=== PATIENT | male | born 1995 | race Caucasian/White ===

== ENCOUNTER 2017-08-31 15:03 | Inpatient (IN) | payer SELFPAY ==
[~2017-08-31 15:03] MED LIST: GLYCOPYRROLATE 1 MG/5 ML SYRINGE IV PUSH ONE; LIDOCAINE HCL 1% PF 5 ML SYRINGE OTHER ONE; NEOSTIGMINE 5 MG/5 ML SYRINGE IV PUSH ONE; PHENYLEPH/NS 1000 MCG/10 ML SYR IV ONE; PROPOFOL 200 MG/20 ML AMP IV ONE; ROCURONIUM INJ 50 MG/5 ML SYRINGE IV PUSH ONE; ePHEDrine/NS 25 MG/5 ML SYRINGE IV ONE
[2017-08-31 15:15] VITALS: BP 144/76; PULSE 88; RESP 18; TEMP 97.9; O2SAT 99
[2017-08-31] MEDS ORDERED: ceFAZolin 2 GM PREMIX 50 ML IV ONE (17:30)
--- NOTE | 2017-08-31 17:31 | PD ---
HPI Chief Complaint: Eye Problems/Injury Time Seen by Provider: 16:32 Travel History International Travel<30 days: No Contact w/Intl Traveler<30days: No Traveled to known affect area: No History of Present Illness HPI This is a 22-year-old male with no significant past medical history, sent here from [place] on a freestanding ER for evaluation by ophthalmology. The patient was working with a nail gun and reports that a nail ricocheted off the plywood into his right eye. CT scan was performed at [place] on the ED which showed a right open globe. The patient was given tetanus immunization. He was also given pain medication and transferred here. There are no other reported injuries. [facility] Past Medical History Medical History: Denies Significant Hx ?: Not Past Surgical History Surgical History: No Previous Surgery Social History Alcohol Use: No Tobacco Use: Yes Substance Use: No Allergies-Medications (Allergen,Severity, Reaction): Coded Allergies: No Known Allergies (Unverified , 08/31/17) Reported Meds & Prescriptions Reported Meds & Active Scripts Active No Active Prescriptions or Reported Medications Review of Systems Except as stated in HPI: all other systems reviewed are Neg General / Constitutional: No: Fever, Chills Eyes: Positive: Foreign Body Sensation (Right eye), Pain, Visual changes ( right eye) HENT: Positive: Headaches ( right eye), No: Neck Pain Cardiovascular: No: Chest Pain or Discomfort, Irregular Rhythm Respiratory: No: Cough, Shortness of Breath Gastrointestinal: No: Nausea, Vomiting, Abdominal Pain Musculoskeletal: No: Weakness, Pain Neurologic: Positive: Headache (Right forehead), No: Weakness, Dizziness Physical Exam Narrative GENERAL: Well-developed well-nourished male in no obvious respiratory distress. SKIN: Focused skin assessment warm/dry. HEAD: Atraumatic. Normocephalic. EYES: Right pupil was irregular. There appear to be streaming of vitreous fluid. There was opacification on light reflex. Left eye is reactive. No scleral icterus. No injection or drainage. ENT: No nasal bleeding or discharge. Mucous membranes pink and moist. NECK: Trachea midline. Supple. CARDIOVASCULAR: Regular rate and rhythm. No murmur appreciated. RESPIRATORY: No accessory muscle use. Clear to auscultation. Breath sounds equal bilaterally. GASTROINTESTINAL: Abdomen soft, non-tender, nondistended. Hepatic and splenic margins not palpable. MUSCULOSKELETAL: No obvious deformities. No clubbing. No cyanosis. No edema. NEUROLOGICAL: Awake and alert. No obvious cranial nerve deficits. Motor grossly within normal limits. Normal speech. Data Data Last Documented VS Vital Signs Date Time Temp Pulse Resp B/P (MAP) Pulse Ox O2 Delivery O2 Flow Rate FiO2 08/31/17 15:15 97.9 88 18 144/76 (98) 99 Orders Orders Cefazolin 2 Gm Premix (Ancef 2 Gm Premix (08/31/17 17:30) Admit Order (Ed Use Only) (08/31/17 18:03) Consult Ophthalmology (08/31/17 ) [facility] Medical Decision Making Medical Screen Exam Complete: Yes Emergency Medical Condition: Yes Differential Diagnosis Ruptured globe Narrative Course 22-year-old male presents from [facility] the ED as an ER to ER transfer. The patient was evaluated by Dr. Milligan, on-call podiatry professor, patient has confirmed ruptured globe from CT scan. Dr. Milligan will take the patient to the operating room for repair. He has been given Ancef, 2 g IV 1 dose. Diagnosis Primary Impression: Ruptured globe, right eye Admitting Information Admitting Physician Requests: Admit Scripts No Active Prescriptions or Reported Meds Azael Enriquez MD Aug 31, 2017 17:31
--- NOTE | 2017-08-31 17:45 | PD.CONS ---
History of Present Illness Service Ophthalmology Consult Requested By Reason for Consult ruptured globe right eye Primary Care Physician No Primary Care Physician Diagnoses: History of Present Illness 22 yo M who presented to [place] ED after a nail gun injury to his right eye. Had immediate pain and decreased vision. No significant ocular history. CT showed obvious ruptured globe so he was transferred to [place] for further care. Past Family Social History Allergies: Coded Allergies: No Known Allergies (Unverified , 08/31/17) Physical Exam Vital Signs Vital Signs Date Time Temp Pulse Resp B/P (MAP) Pulse Ox O2 Delivery O2 Flow Rate FiO2 08/31/17 15:15 97.9 88 18 144/76 (98) 99 Physical Exam Va sc at near OD HM, OS 20/20 EOM full OU, no diplopia CVF full OS, unable OD Pupils 2-1 OS, no view OD IOP deferred Anterior exam OD - normal eyelid, sclerocorneal laceration with uveal prolapse, traumatic cataract with shallow AC OS - normal eyelid, C/S W&Q, K clear, AC deep, pupil round, lens clear Assessment and Plan Problem List: (1) 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 NPO since yesterday. Eye shield. Tetanus. IV Ancef. Admit to medicine for 23 hour Obs. Teressa Milligan MD Aug 31, 2017 17:45
[2017-08-31] MEDS ORDERED: SENNOSIDES 8.6 MG TAB PO PRN (18:30)
[2017-08-31] MEDS ORDERED: ONDANSETRON HCL 4 MG/2 ML VIAL IVP PRN (18:30)
[2017-08-31] MEDS ORDERED: NALOXONE HCL 0.4 MG/ML AMP IV PUSH PRN (18:30)
[2017-08-31] MEDS ORDERED: MAGNESIUM HYDROXIDE SUSP 30 ML CUP PO PRN (18:30)
[2017-08-31] MEDS ORDERED: ACETAMINOPHEN 325 MG TAB PO PRN (18:30)
[2017-08-31] MEDS ORDERED: LACTULOSE SYRUP 20 GM/30 ML CUP PO PRN (18:30)
[2017-08-31] MEDS ORDERED: SODIUM CHLORIDE 0.9% FLUSH 10 ML FLUSH IV FLUSH PRN (18:30)
[2017-08-31] MEDS ORDERED: BISACODYL 10 MG SUPP RECTAL PRN (18:30)
[2017-08-31] MEDS ORDERED: HYDROmorphone HCL PF 1 MG/ML VIAL IV PUSH ONE (18:45)
[2017-08-31] MEDS ORDERED: HYDROmorphone HCL PF 2 MG/ML VIAL IV ONE (19:00)
[2017-08-31] MEDS ORDERED: ceFAZolin INJ 1,000 MG VIAL ONE (19:05)
[2017-08-31] MEDS ORDERED: SODIUM CHLORIDE 0.9% 20 ML VIAL ONE (19:05)
[2017-08-31] MEDS ORDERED: TOBRAMYCIN/DEXAMETHASONE OPTH OINT 3.5 GM TUBE ONE (19:06)
[2017-08-31] MEDS ORDERED: DEXAMETHASONE SOD PHOS 4 MG/ML VIAL ONE (19:06)
[2017-08-31] MEDS ORDERED: BALANCED SALT SOLN OPHT IRRIG 15 ML BTL ONE (19:06)
--- NOTE | 2017-08-31 19:24 | HHI.HP ---
HPI Service [facility] Hospitalists Primary Care Physician No Primary Care Physician Admission Diagnosis right eye ruptured globe Diagnoses: Chief Complaint: Right eye pain Travel History International Travel<30 Days: No Contact w/Intl Traveler <30 Da: No Traveled to Known Affected Are: No History of Present Illness This is a 22-year-old male without significant past medical history who presents to [facility] complaining of right eye pain after he injured his right eye with a nail gun. As per the patient he was helping a friend with a nail gun when 1 of the nails bounds of the object they were trying to get the nail to. Patient complains of right eye pain 7/10 in intensity, nonradiating, alleviated by pain medications, there is no aggravating factors identified by the patient. The patient has been seen and evaluated in the emergency department, ophthalmology has been consulted and there are plans for surgery later tonight. Review of Systems As per HPI, other systems reviewed by me and negative Past Family Social History Past Medical History Denies Past Surgical History Denies Reported Medications Reported Meds & Active Scripts Active Percocet (Oxycodone-Acetaminophen) 5-325 mg Tab 1 Tab PO Q4H PRN Augmentin (Amoxicillin-Clavulanate) 875-125 Mg Tab 1 Tab PO BID Pred Forte Opth 1% (Prednisolone Acetate Opth 1%) 1% Susp 1 Drop RIGHT EYE QID Vigamox Opth Drops (Moxifloxacin Opth Drops) 0.5 % Soln 1 Drop RIGHT EYE QID Allergies: Coded Allergies: No Known Allergies (Unverified , 08/31/17) Family History Denies family history of diabetes, heart disease or cancer. Social History The patient smokes 2-5 cigarettes per day. Occasional alcohol intake. Denies illicit drug use. Physical Exam Vital Signs Vital Signs Date Time Temp Pulse Resp B/P (MAP) Pulse Ox O2 Delivery O2 Flow Rate FiO2 08/31/17 15:15 97.9 88 18 144/76 (98) 99 Physical Exam GENERAL: This is a well-nourished, well-developed patient, in no apparent distress. SKIN: No rashes, ecchymoses or lesions. Cool and dry. HEAD: Atraumatic. Normocephalic. No temporal or scalp tenderness. EYES: Right eye has a patch. The left eye has intact intraocular muscle movements, pupillary reflexes normal. ENT: Nose without bleeding, purulent drainage or septal hematoma. Throat without erythema, tonsillar hypertrophy or exudate. Uvula midline. Airway patent. NECK: Trachea midline. No JVD or lymphadenopathy. Supple, nontender, no meningeal signs. CARDIOVASCULAR: Regular rate and rhythm without murmurs, gallops, or rubs. RESPIRATORY: Clear to auscultation. Breath sounds equal bilaterally. No wheezes , rales, or rhonchi. GASTROINTESTINAL: Abdomen soft, non-tender, nondistended. No hepato-splenomegaly , or palpable masses. No guarding. MUSCULOSKELETAL: Extremities without clubbing, cyanosis, or edema. No joint tenderness, effusion, or edema noted. No calf tenderness. Negative Homans sign bilaterally. NEUROLOGICAL: Awake and alert. Cranial nerves II through XII intact. Motor and sensory grossly within normal limits. Five out of 5 muscle strength in all muscle groups. Normal speech. Caprini VTE Risk Assessment Caprini VTE Risk Assessment: No/Low Risk (score <= 1) Caprini Risk Assessment Model Point Value = 1 Point Value = 2 Point Value = 3 Point Value = 5 Age 41-60 Minor surgery BMI > 25 kg/m2 Swollen legs Varicose veins or History of unexplained or recurrent spontaneous Oral contraceptives or hormone replacement Sepsis (< 1 month) Serious lung disease, including pneumonia (< 1 month) Abnormal pulmonary function Acute myocardial infarction Congestive heart failure (< 1 month) History of inflammatory bowel disease Medical patient at bed rest Age 61-74 Arthroscopic surgery Major open surgery (> 45 min) Laparoscopic surgery (> 45 min) Malignancy Confined to bed (> 72 hours) Immobilizing plaster cast Central venous access Age >= 75 History of VTE Family history of VTE Factor V Leiden Prothrombin [id number] Lupus anticoagulant Anticardiolipin antibodies Elevated serum homocysteine Heparin-induced thrombocytopenia Other congenital or acquired thrombophilia Stroke (< 1 month) Elective arthroplasty Hip, pelvis, or leg fracture Acute spinal cord injury (< 1 month) Prophylaxis Regimen Total Risk Factor Score Risk Level Prophylaxis Regimen 0-1 Low Early ambulation 2 Moderate Order ONE of the following: *Sequential Compression Device (SCD) *Heparin 5000 units SQ BID 3-4 Higher Order ONE of the following medications: *Heparin 5000 units SQ TID *Enoxaparin/Lovenox 40 mg SQ daily (WT < 150 kg, CrCl > 30 mL/min) *Enoxaparin/Lovenox 30 mg SQ daily (WT < 150 kg, CrCl > 10-29 mL/min) *Enoxaparin/Lovenox 30 mg SQ BID (WT < 150 kg, CrCl > 30 mL/min) AND/OR *Sequential Compression Device (SCD) 5 or more Highest Order ONE of the following medications: *Heparin 5000 units SQ TID (Preferred with Epidurals) *Enoxaparin/Lovenox 40 mg SQ daily (WT < 150 kg, CrCl > 30 mL/min) *Enoxaparin/Lovenox 30 mg SQ daily (WT < 150 kg, CrCl > 10-29 mL/min) *Enoxaparin/Lovenox 30 mg SQ BID (WT < 150 kg, CrCl > 30 mL/min) AND *Sequential Compression Device (SCD) Assessment and Plan Problem List: (1) Ruptured globe, right eye ICD Code: S05.31XA - Ocular laceration without prolapse or loss of intraocular tissue, right eye, initial encounter Status: Acute Assessment and Plan Admit to inpatient ophtalmology consult fo OR later today keep npo Pain control w IV morphine Code Status Full code Discussed Condition With Patient, [employer] physician Physician Certification 2 Midnight Certification Type: Admission for Inpatient Services Order for Inpatient Services The services are ordered in accordance with Medicare regulations or non- Medicare payer requirements, as applicable. In the case of services not specified as inpatient-only, they are appropriately provided as inpatient services in accordance with the 2-midnight benchmark. Estimated LOS (days): 2 days is the estimated time the patient will need to remain in the hospital, assuming treatment plan goals are met and no additional complications. Post-Hospital Plan: Not yet determined Jerel Daily MD Aug 31, 2017 19:24
[2017-08-31] MEDS ORDERED: MORPHINE SULFATE 2 MG/ML INJ IV PUSH PRN (19:30)
[2017-08-31] MEDS ORDERED: MORPHINE SULFATE 4 MG/ML INJ IV PUSH PRN (19:30)
[2017-08-31 20:00] VITALS: BP 135/64; PULSE 70; RESP 14; O2SAT 95
[2017-08-31] MEDS ORDERED: MORPHINE SULFATE 2 MG/ML INJ IV PUSH ONE (20:30)
[2017-08-31] MEDS ORDERED: TOBRAMYCIN 0.3%/DEXAMETHASONE 0.1% OPHT SUSP 5 ML BTL ONE (20:58)
[2017-08-31] MEDS: DOCUSATE SODIUM 50 MG/SENNA 8.6 MG TAB PO SCH (21:00)
[2017-08-31] MEDS: SODIUM CHLORIDE 0.9% FLUSH 10 ML FLUSH IV FLUSH SCH (21:00)
[2017-08-31] MEDS ORDERED: DO NOT ADM ANY ANTICOAGULANT DRUGS PRN (23:15)
--- NOTE | 2017-08-31 23:17 | PD.OP ---
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 He was put under general anesthesia and prepped and draped in the usual sterile fashion for ophthalmic surgery. A wire lid speculum was placed in the right eye. A large stellate corneal laceration was seen between 6 and 10 o'clock. A conjunctival peritomy was performed around the laceration to explore the sclera , which was found to not be perforated. The wound was irrigated with Tobradex. 10-0 nylon sutures were used to close the incision. The globe was reformed with BSS and [place]. The incision was found to be watertight. The conjunctiva was closed with 7-0 Vicryl. Subconjunctival Decadron and Cefazolin were injected. Tobradex ointment, a patch, and shield were placed on the right eye. The patient was sent to PACU in stable condition. Teressa Milligan MD Aug 31, 2017 23:17
[2017-08-31] MEDS ORDERED: *morphine SULFATE 4 MG/ML PERIprocedure ONLY ONE (23:22)
--- NOTE | 2017-08-31 23:22 | HHI.PR ---
Subjective Remarks s/p ruptured globe repair of right eye. Currently in PACU. 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 IV Ancef. Pain medication PRN. Keep eye shield on. Ok to discharge tomorrow morning with following prescriptions - Vigamox eyedrops 1 drop to right eye QID, Prednisone 1% eyedrops 1 drop to right eye QID , Augmentin 875mg BID x 10 days, Percocet 5/325 PRN. Follow up tomorrow ( Friday 09/01) in office at 1 pm ([address] [facility]. [phone]). Teressa Milligan MD Aug 31, 2017 23:22
[2017-09-01] VITALS: BP 125/69; PULSE 75; RESP 16; TEMP 96.5; O2SAT 97
[2017-09-01 04:00] VITALS: BP 107/59; PULSE 85; RESP 18; TEMP 96.6; O2SAT 99
[2017-09-01 08:00] VITALS: BP 116/61; PULSE 71; RESP 18; TEMP 97.7; O2SAT 97
[2017-09-01 08:33] LABS: AUTOMATED NEUTROPHIL # 10.5 TH/MM3 (1.8-7.7); BASOPHIL % 0.2 % (0.0-2.0); EOSINOPHIL # 0.1 TH/MM3 (0-0.4); EOSINOPHIL % 0.5 % (0.0-4.0); HEMATOCRIT 41.2 % (39.0-51.0); HEMOGLOBIN 14.4 GM/DL (13.0-17.0); LYMPH % 16.6 % (9.0-44.0); LYMPHOCYTE # 2.3 TH/MM3 (1.0-4.8); MEAN CELL VOLUME 85.5 FL (80.0-100.0); MEAN CORPUSCULAR HEMOGLOBIN 29.9 PG (27.0-34.0); MEAN PLATELET VOLUME 7.4 FL (7.0-11.0); MONO % 6.6 % (0.0-8.0); MONOCYTE # 0.9 TH/MM3 (0-0.9); NEUT % 76.1 % (16.0-70.0); PLATELET COUNT 247 TH/MM3 (150-450); RED BLOOD COUNT 4.82 MIL/MM3 (4.50-5.90); RED CELL DISTRIBUTION WIDTH 12.9 % (11.6-17.2); WHITE BLOOD COUNT 13.8 TH/MM3 (4.0-11.0)
[2017-09-01] MEDS: DOCUSATE SODIUM 50 MG/SENNA 8.6 MG TAB PO SCH (08:46)
[2017-09-01] MEDS: SODIUM CHLORIDE 0.9% FLUSH 10 ML FLUSH IV FLUSH SCH (08:47)
[2017-09-01 09:00] LABS: ALBUMIN 3.7 GM/DL (3.4-5.0); AST (GOT) 19 U/L (15-37); BICARBONATE 29.2 MEQ/L (21.0-32.0); BLOOD UREA NITROGEN 13 MG/DL (7-18); CALCIUM 8.9 MG/DL (8.5-10.1); CHLORIDE 102 MEQ/L (98-107); CREATININE 0.86 MG/DL (0.60-1.30); GLOMERULAR FILTRATION RATE 110 ML/MIN (>89); SODIUM (NA) 139 MEQ/L (136-145)
[2017-09-01 09:05] LABS: GLUCOSE,RANDOM 99 MG/DL (74-106)
[2017-09-01 09:10] LABS: ALKALINE PHOSPHATASE 134 U/L (45-117); ALT (GPT) 60 U/L (12-78)
--- NOTE | 2017-09-01 09:29 | HHI.PR ---
Subjective Remarks Follow-up rupture globe right eye 09/01/17-patient seen and examined, he is s/p repair of ruptured globe right eye. No acute event overnight. Afebrile Objective Vitals Vital Signs Date Time Temp Pulse Resp B/P (MAP) Pulse Ox O2 Delivery O2 Flow Rate FiO2 09/01/17 08:00 97.7 71 18 116/61 (79) 97 09/01/17 04:00 96.6 85 18 107/59 (75) 99 09/01/17 00:00 96.5 75 16 125/69 (87) 97 08/31/17 23:45 98.3 82 16 120/59 (79) 96 Room Air 08/31/17 23:30 80 16 113/53 (73) 95 Room Air 08/31/17 23:15 89 16 123/57 (79) 94 Room Air 08/31/17 23:12 98.9 91 16 125/59 (81) 96 Room Air 08/31/17 21:12 98.1 78 20 137/70 (92) 97 08/31/17 21:03 98.1 78 20 137/70 (92) 97 08/31/17 20:00 70 14 135/64 (87) 95 Room Air 08/31/17 15:15 97.9 88 18 144/76 (98) 99 I/O 08/31/17 08/31/17 08/31/17 09/01/17 09/01/17 09/01/17 07:00 15:00 23:00 07:00 15:00 23:00 Intake Total 1050 ml 240 ml Output Total 0 ml Balance 1050 ml 240 ml Intake Oral 240 ml IV Total 50 ml Other 1000 ml Output Estimated Blood Loss 0 ml # Voids 2 Result Diagram: 09/01/17 0742 09/01/17 0742 Objective Remarks GENERAL: NAD SKIN: Warm and dry. HEAD: Normocephalic. EYES: patch covering right eye NECK: Supple, trachea midline. No JVD or lymphadenopathy. CARDIOVASCULAR: Regular rate and rhythm without murmurs, gallops, or rubs. RESPIRATORY: Breath sounds equal bilaterally. No accessory muscle use. GASTROINTESTINAL: Abdomen soft, non-tender, nondistended. MUSCULOSKELETAL: No cyanosis, or edema. BACK: Nontender without obvious deformity. No CVA tenderness. Procedures repair of ruptured globe right eye 08/31/17 A/P Problem List: (1) Ruptured globe, right eye ICD Code: S05.31XA - Ocular laceration without prolapse or loss of intraocular tissue, right eye, initial encounter Status: Acute Assessment and Plan 22 year-old man with Ruptured globe, right eye s/p repair of ruptured globe right eye 08/31/17 Management per ophthalmology Treatment with Vigamox eyedrops 1 drop to right eye QID, Prednisone 1% eyedrops 1 drop to right eye QID, Augmentin 875mg BID x 10 days, Percocet 5/325 PRN. Follow up today (Friday 09/01) in office at 1 pm Discharge Planning Discharge patient to home Condition on discharge: Improved Regular Diet as tolerated Ad Heather activity Rx written:see EMR Follow-up with primary care physician in 1 week Ophthalmology today 09/01/17 Alberto Gonzalez MD Sep 01, 2017 09:29
[2017-09-01] MEDS ORDERED: PRED1SUS RIGHT EYE (09:37)
[2017-09-01] MEDS ORDERED: PERC5TAB12 PO (09:37)
[2017-09-01] MEDS ORDERED: AUGM875T3 PO (09:37)
[2017-09-01] MEDS ORDERED: VIGA0.5D RIGHT EYE (09:37)
[2017-09-01] MEDS ORDERED: AMOXICILLIN/CLAVULANATE K 875 MG TAB PO SCH (10:00)
== END 2017-09-01 11:32 | disposition home or self-care (01) | DRG 115 ==
LOC: NEPE 15:03 → NEDA 18:08 → N07A 23:55
PROVIDERS: ADMIT Hospitalist; ATTEND Hospitalist
PROC: 08Q8XZZ Repair Right Cornea, External Approach (ICD-10-PCS; 2017-08-31)
PROC: 08QSXZZ Repair Right Conjunctiva, External Approach (ICD-10-PCS; principal; 2017-08-31 21:14)
DX: S05.21XA Ocular laceration and rupture with prolapse or loss of intraocular tissue, right eye, initial encounter (principal); H54.7 Unspecified visual loss; Z72.0 Tobacco use; W29.4XXA Contact with nail gun, initial encounter
CPT/HCPCS: 70450; 70486; 80053; 85025; 85610; 85730; 90471; 90714; 96365; 96374; 96375; J0690; J1100; J1170; J2270; J2370; J2405; J2710; J3010

== ENCOUNTER → 2017-10-27 | Day surgery (SDC) | payer SELFPAY ==
[~2017-10-27] VITALS: Ht 182.9 cm; Wt 90.0 kg
[~2017-10-27] MED LIST changes: +*morphine SULFATE 4 MG/ML PERIprocedure ONLY ONE; +ACETAMINOPHEN 1000 MG/100 ML 100 ML IV ONE; +ATROPINE SULFATE 1% OPHT SOLN 2 ML BTL ONE; +AUGM875T3 PO; +BALANCED SALT SOLN OPHT IRRIG 15 ML BTL ONE; +CHLORHEXIDINE GLUCONATE 2 % 1 PACK (2 CLOTHS) TOPICAL PRN; +DEXAMETHASONE SOD PHOS 4 MG/ML VIAL IV ONE; +DEXAMETHASONE SOD PHOS 4 MG/ML VIAL ONE; +DO NOT ADM ANY ANTICOAGULANT DRUGS PRN; +EPINEPHrine HCL (1:1000) 1 MG/ML VIAL ONE; -GLYCOPYRROLATE 1 MG/5 ML SYRINGE IV PUSH ONE; +KETOROLAC TROMETHAMINE 30 MG/ML (IVP) VIAL IV PUSH ONE; +KETOROLAC TROMETHAMINE 30 MG/ML (IVP) VIAL ONE; +LACTATED RINGER'S 1000 ML IV PRN; +METOPROLOL TARTRATE 25 MG TAB PO PRN; +MIDAZOLAM HCL 2 MG/2 ML VIAL ONE; -NEOSTIGMINE 5 MG/5 ML SYRINGE IV PUSH ONE; +ONDANSETRON HCL 4 MG/2 ML VIAL IV ONE; +PERC5TAB12 PO; +POVIDONE IODINE 5% (ANTISEPSIS KIT) 4 APPLICATIONS EACH NARE PRN; +PRED1SUS RIGHT EYE; -ROCURONIUM INJ 50 MG/5 ML SYRINGE IV PUSH ONE; +SODIUM CHLORID 0.9% 500 ML INJ 500 ML IV PRN; +SODIUM CHLORID 0.9% 500 ML IV PRN; +STERILE WATER FOR INJECTION 20 ML VIAL ONE; +TOBRAMYCIN/DEXAMETHASONE OPTH OINT 3.5 GM TUBE ONE; +VIGA0.5D RIGHT EYE; +ceFAZolin INJ 1,000 MG VIAL ONE; -ePHEDrine/NS 25 MG/5 ML SYRINGE IV ONE
[2017-10-27 07:57] VITALS: BP 135/100; PULSE 78; RESP 15; TEMP 97.3; O2SAT 99
--- NOTE | 2017-10-27 08:52 | PD ---
HPI Chief Complaint: Medical Clearance Time Seen by Provider: 08:19 Travel History International Travel<30 days: No Contact w/Intl Traveler<30days: No Traveled to known affect area: No History of Present Illness HPI 22-year-old presents emergency department with eye pain and difficulties. He follows with Dr. Sands with ophthalmology has been having elevated pressures. Was told he would need cataract surgery because of the pressures. History is obtained through family member [facility] and medical records. History Past Medical History Narrative Medical Open globe injury on August 31 Social History Alcohol Use: Yes Tobacco Use: Yes Allergies-Medications (Allergen,Severity, Reaction): Coded Allergies: No Known Allergies (Unverified , 10/27/17) Reported Meds & Prescriptions Reported Meds & Active Scripts Active Percocet (Oxycodone-Acetaminophen) 5-325 mg Tab 1 Tab PO Q4H PRN Augmentin (Amoxicillin-Clavulanate) 875-125 Mg Tab 1 Tab PO BID Pred Forte Opth 1% (Prednisolone Acetate Opth 1%) 1% Susp 1 Drop RIGHT EYE QID Vigamox Opth Drops (Moxifloxacin Opth Drops) 0.5 % Soln 1 Drop RIGHT EYE QID Review of Systems ROS Limitations: Language Barrier Except as stated in HPI: all other systems reviewed are Neg Physical Exam Narrative GENERAL: Well-appearing 22-year-old man, no acute distress. SKIN: Warm and dry. EYE: Right eye is opaque. Decreased vision. CARDIOVASCULAR: Warm and well perfused. RESPIRATORY: Normal rate and effort. MUSCULOSKELETAL: No deformities. NEUROLOGICAL: Awake and alert. No gross deficits. Data Data Last Documented VS Vital Signs Date Time Temp Pulse Resp B/P (MAP) Pulse Ox O2 Delivery O2 Flow Rate FiO2 10/27/17 07:57 97.3 78 15 135/100 (112) 99 Orders Orders Admit Order (Ed Use Only) (10/27/17 ) MDM Medical Decision Making Medical Screen Exam Complete: Yes Emergency Medical Condition: Yes Differential Diagnosis Acute glaucoma, subacute glaucoma, cataract, other Narrative Course Medical decision making This 22-year-old male presents emerged department complaining of eye pain, referred by ophthalmology because of uncontrollable eye pressures due to cataracts related to open globe injury. I spoke with Dr. grove, patient will be taken to the operating room. Diagnosis Primary Impression: Glaucoma Admitting Information Admitting Physician Requests: Observation Alexander Crain MD October 27, 2017 08:52
[2017-10-27] MEDS: MOXIFLOXACIN 0.5% OPHT SOLN 3 ML BTL RIGHT EYE SCH ×2 (12:01→12:16)
[2017-10-27] MEDS: prednisoLONE ACETATE 1% OPHT SUSP 5 ML BTL RIGHT EYE SCH ×2 (12:01→12:16)
[2017-10-27] MEDS: PHENYLEPHRINE HCL 2.5% OPTH SOLN 2 ML BTL RIGHT EYE SCH ×2 (12:01→12:16)
[2017-10-27] MEDS: TROPICAMIDE 1% OPHT SOLN 15 ML BTL RIGHT EYE SCH ×2 (12:01→12:16)
[2017-10-27] MEDS: ATROPINE SULFATE 1% OPHT SOLN 5 ML BTL RIGHT EYE SCH ×2 (12:01→12:16)
[2017-10-27] MEDS: CYCLOPENTOLATE HCL 1% OPHT SOLN 2 ML BTL RIGHT EYE SCH ×2 (12:01→12:16)
[2017-10-27 18:05] VITALS: BP 131/78; PULSE 88; RESP 16; TEMP 97.8; O2SAT 95
--- NOTE | 2017-10-29 17:37 | MP ---
cc: Kevon Sands MD DATE OF OPERATION: 10/27/2017 PREOPERATIVE DIAGNOSIS: Ruptured globe, status post repair, traumatic cataract, vitreous hemorrhage, tractional retinal detachment, large iris defect, right eye. POSTOPERATIVE DIAGNOSIS: Ruptured globe, status post repair, traumatic cataract, vitreous hemorrhage, tractional retinal detachment, large iris defect, right eye. PROCEDURE: Pars plana vitrectomy, tractional retinal detachment repair, lensectomy, iris repair, insertion of MA60AC intraocular lens, 21.0 diopter power with scleral fixation, endolaser, right eye. COMPLICATIONS: None. ESTIMATED BLOOD LOSS: Less than 1 mL. ANESTHESIA: General. INDICATIONS FOR PROCEDURE: This delightful patient presented after a ruptured globe repair. The patient unfortunately had a nail that went through his eye. The nail was originally removed and anterior corneal and scleral wound was closed. The patient developed a white traumatic cataract, had a large iris defect and traction retinal detachment. The patient elected for surgical correction understanding the very guarded prognosis and severity of disease. PROCEDURE NOTE: After informed consent was obtained, the patient was brought to the operating room. General anesthesia was established. The right eye was prepped and draped in sterile fashion with Betadine in the conjunctival fornix. A three-port pars plana vitrectomy was established with a self-retaining lighted infusion cannula. The anterior vitreous was removed with the vitrector. The white traumatic cataract was then removed with a pars plana approach and the vitrector. The capsule was removed. The vitreous hemorrhage and debris was removed with careful vitrectomy. Vitreous traction was removed. Tractional complex extending to the temporal mid-peripheral retina was carefully dissected from the underlying retina and removed with vitrectomy. There was an area of scarring from previous exit wound of the nail which was surrounded with endolaser. Attention was now paid to the iris. The synechiae to the corneal wound was relieved. The nasal iris was placed and tube was placed in position and held with multiple mattress sutures to the sclera. A near clear corneal incision was made with a 3.0 keratome. An MA60AC intraocular lens, 21.0 diopter power, was inserted. A superior-inferior sclerotomy was made with a 23-gauge MVR blade with adjacent scleral tunnel. Each haptic of the intraocular lens was externalized and secured into the scleral tunnel. The intraocular lens was then nicely centered and stable. Scleral depression examination revealed no untreated retinal holes, tears or detachments. The previous temporal tractional detachment appeared well treated with endolaser. Scleral trocars were removed and sclerotomies closed. The conjunctiva was reapproximated with 6-0 plain gut. Subconjunctival injection of Ancef and dexamethasone were given. The eye was patched with tobramycin ointment. The patient was brought to the recovery room in stable condition. He will continue to followup with [facility] for his postoperative care. MD DEAN Perez/JADON , 05:02 PM , 05:37 PM HOLLIS
== END | disposition home or self-care (01) ==
LOC: NEPE 07:53 → HSDC 09:10
PROVIDERS: ATTEND Ophthalmology
DX: H26.101 Unspecified traumatic cataract, right eye (principal); H40.811 Glaucoma with increased episcleral venous pressure, right eye; H43.11 Vitreous hemorrhage, right eye; H33.41 Traction detachment of retina, right eye; S05 Injury of eye and orbit
CPT/HCPCS: 00140; 66680; 66983; 67107; 99281; J0131; J0171; J0690; J1100; J1885; J2250; J2270; J2370; J2405; J3010; J7040; J7120; V2632